=== PATIENT | female | born 1965 | race Caucasian/White ===

== ENCOUNTER → 2019-12-23 | Outpatient (CLI) | payer BC ==
[2019-12-23 15:26] LABS: CHLORIDE 98 MMOL/L (98-107); POTASSIUM 3.9 MMOL/L (3.6-5.0); SODIUM 138 MMOL/L (135-145)
[2019-12-23 15:27] LABS: ALANINE AMINOTRANSFERASE 31 U/L (0-55); ALBUMIN 4.2 GM/DL (3.2-4.5); ALKALINE PHOSPHATASE 117 U/L (40-136); BILIRUBIN,TOTAL 0.7 MG/DL (0.1-1.0); BUN/CREATININE RATIO 16; CALCIUM 9.3 MG/DL (8.5-10.1); CARBON DIOXIDE 28 MMOL/L (21-32); CREATININE SERUM 0.82 MG/DL (0.60-1.30); GFR ESTIMATED > 60; GLUCOSE 99 MG/DL (70-105); TOTAL PROTEIN 6.5 GM/DL (6.4-8.2)
[2019-12-24 14:59] LABS: TRIGLYCERIDES 73 MG/DL (<150); VLDL CHOLESTEROL 15 MG/DL (5-40)
[2019-12-24 15:04] LABS: CHOLESTEROL 195 MG/DL (< 200)
[2019-12-24 15:05] LABS: HDL CHOLESTEROL 50 MG/DL (40-60)
[2019-12-24 15:28] LABS: FREE T4 (FREE THYROXINE) 1.33 NG/DL (0.70-1.48)
== END ==
LOC: LAB FS 13:01
PROVIDERS: ATTEND Family Medicine
DX: E03.9 Hypothyroidism, unspecified (principal); I10 Essential (primary) hypertension
CPT/HCPCS: 36415; 80053; 80061; 84439; 84443

== ENCOUNTER → 2021-01-05 | Outpatient (CLI) | payer BC ==
[2021-01-05 10:09] LABS: CARBON DIOXIDE 28 MMOL/L (21-32); CHLORIDE 99 MMOL/L (98-107); POTASSIUM 3.4 MMOL/L (3.6-5.0); SODIUM 137 MMOL/L (135-145)
[2021-01-05 10:10] LABS: ALANINE AMINOTRANSFERASE 31 U/L (0-55); ALBUMIN 4.2 GM/DL (3.2-4.5); ALKALINE PHOSPHATASE 118 U/L (40-136); BILIRUBIN,TOTAL 0.5 MG/DL (0.1-1.0); BUN/CREATININE RATIO 16; CALCIUM 9.4 MG/DL (8.5-10.1); GFR ESTIMATED > 60; GLUCOSE 107 MG/DL (70-105); TOTAL PROTEIN 6.7 GM/DL (6.4-8.2)
[2021-01-05 15:00] LABS: CHOLESTEROL 190 MG/DL (< 200); HDL CHOLESTEROL 49 MG/DL (40-60); TRIGLYCERIDES 103 MG/DL (<150); VLDL CHOLESTEROL 21 MG/DL (5-40)
== END ==
LOC: LAB FS 09:12
PROVIDERS: ATTEND Family Medicine
DX: E03.9 Hypothyroidism, unspecified (principal); I10 Essential (primary) hypertension
CPT/HCPCS: 36415; 80053; 80061; 84443

== ENCOUNTER → 2021-01-12 | Outpatient (CLI) | payer SELFPAY ==
--- NOTE | 2021-01-12 12:39 | Diagnostic Imaging Report ---
EXAMINATION: CT cardiac calcium score. INDICATION: Essential hypertension. TECHNIQUE/COMPARISON: Routine images of the heart were obtained. There are no prior studies available for comparison. FINDINGS: The total Agatston score is 0.0 (please see attached report). The heart size is within normal limits. There are no coronary artery calcifications identified. The aorta is not abnormally dilated. The lungs, where visualized, are generally clear. There is no obvious mediastinal or hilar adenopathy. There is no definite mass involving either visualized breast. Sections through the upper abdomen fail to show any sign of an acute abnormality. The bone windows are unremarkable for a fracture or for a destructive lesion. IMPRESSION: 1. The total Agatston score is 0.0. (Please see attached report). 2. There is no acute abnormality evident on the visualized portions of the thorax. Dictated by: Dictated on workstation # [id number]
== END ==
LOC: RAD FS 10:11
PROVIDERS: ATTEND Family Medicine
DX: I10 Essential (primary) hypertension (principal)
CPT/HCPCS: 75571

== ENCOUNTER → 2021-08-12 | Outpatient (CLI) | payer BC ==
--- NOTE | 2021-08-12 11:56 | Diagnostic Imaging Report ---
INDICATION: Acute cough. EXAMINATION: Two-view chest, 08/12/2021. FINDINGS: The lungs and pleural spaces are clear. No infiltrates, effusions, or pneumothorax. Heart and pulmonary vasculature are normal. IMPRESSION: 1. No acute process. Dictated by: Dictated on workstation # [id number]
== END ==
LOC: RAD FS 11:00
PROVIDERS: ATTEND Registered Nurse Emergency
DX: R05.1 Acute cough (principal)
CPT/HCPCS: 71046

== ENCOUNTER → 2022-05-29 | Outpatient (CLI) | payer BC, OTHER ==
[2022-05-29 10:15] LABS: BILIRUBIN,TOTAL 0.6 MG/DL (0.1-1.0); CALCIUM 9.2 MG/DL (8.5-10.1); CREATININE SERUM 0.79 MG/DL (0.60-1.30); POTASSIUM 3.9 MMOL/L (3.6-5.0); TOTAL PROTEIN 6.4 GM/DL (6.4-8.2)
== END ==
LOC: LAB FS 07:55
PROVIDERS: ATTEND Family Medicine
DX: Z12.31 Encounter for screening mammogram for malignant neoplasm of breast (principal); E03.9 Hypothyroidism, unspecified; E78.5 Hyperlipidemia, unspecified; I10 Essential (primary) hypertension
CPT/HCPCS: 36415; 80053; 80061; 84443